=== PATIENT | female | born 1945 | race Caucasian/White ===

== ENCOUNTER 2017-09-30 08:47 | Day surgery (SDC) | payer OTHER ==
[~2017-09-30] VITALS: Ht 172.7 cm; Wt 65.4 kg
[~2017-09-30 08:47] MED LIST: ALBU90OI61 INH; CHOL10002 PO; Desyrel50 MG PO; EPIN.3I IM; FLUSAL2505 INH; HYDCOR10; LEVSOD100 PO; Prilosec Otc20 MG PO; Ventolin Soln3 ML INH
[2017-09-30] MEDS ORDERED: NASACORT10.8 ML (09:09)
== END 2017-09-30 13:09 | disposition home or self-care (01) ==
LOC: ORSCSDS 08:47
PROVIDERS: Orthopaedic Surgery
PROC: 0JBJ0ZX Excision of Right Hand Subcutaneous Tissue and Fascia, Open Approach, Diagnostic (ICD-10-PCS; principal; 2017-09-30 10:00)
DX: R22.31 Localized swelling, mass and lump, right upper limb (principal); L72.0 Epidermal cyst; E03.9 Hypothyroidism, unspecified; M35.3 Polymyalgia rheumatica; J45.909 Unspecified asthma, uncomplicated; Z79.899 Other long term (current) drug therapy
CPT/HCPCS: 88304; J0171; J0690; J1100; J1885; J2250; J2405; J3010; J7120

== ENCOUNTER 2018-02-19 09:57 | Emergency (ER) | payer OTHER ==
[~2018-02-19] VITALS: Ht 172.7 cm; Wt 63.5 kg
[~2018-02-19 09:57] MED LIST changes: +NASACORT10.8 ML
[2018-02-19 10:32] LABS: BASOPHILS ABSOLUTE AUTO 0.04 K/mm3 (0.00-0.23); BASOPHILS PERCENT AUTO 1 % (0-2); EOSINOPHILS ABSOLUTE AUTO 0.07 K/mm3 (0.00-0.68); EOSINOPHILS PERCENT AUTO 1 % (0-6); Hemoglobin 12.9 g/dL (11.5-16.0); IMMATURE GRAN ABSOLUTE AUTO 0.01 K/mm3 (0.00-0.10); IMMATURE GRAN PERCENT AUTO 0 % (0-1); LYMPHOCYTES ABSOLUTE AUTO 1.47 K/mm3 (0.84-5.20); LYMPHOCYTES PERCENT AUTO 26 % (21-46); MONOCYTES ABSOLUTE AUTO 0.64 K/mm3 (0.16-1.47); MONOCYTES PERCENT AUTO 11 % (4-13); Mean Corpuscular HGB 31.1 pg (26.0-34.0); Mean Corpuscular HGB Conc 33.9 g/dL (31.5-36.5); Mean Corpuscular Volume 92 fL (80-100); Mean Platelet Volume 10.4 fL (9.1-12.4); NEUTROPHILS ABSOLUTE AUTO 3.43 K/mm3 (1.96-9.15); NEUTROPHILS PERCENT AUTO 61 % (41-73); Platelet Count 198 K/mm3 (150-400); RDW Coefficient Variation 13.1 % (11.7-14.2); RDW Standard Deviation 43.8 fL (35.1-46.3); Red Blood Cell Count 4.15 M/mm3 (3.80-5.20); White Blood Cell Count 5.66 K/mm3 (4.00-11.30)
[2018-02-19 10:49] LABS: Alanine Aminotransfer (ALT/SGP 27 U/L (12-78); Albumin, Blood 3.8 g/dL (3.4-5.0); Albumin/Globulin Ratio 1.1 (0.8-1.8); Alk Phos 68 U/L (50-136); Anion Gap 11 mmol/L (6-16); Aspartate Aminotrans (AST/SGOT 40 U/L (12-37); Bilirubin, Total 0.8 mg/dL (0.1-1.0); Blood Urea Nitrogen 10 mg/dL (8-24); Bun/Creatinine Ratio 14.8 (12.0-20.0); CO2, Blood 24 mmol/L (21-32); Calcium, Blood 8.8 mg/dL (8.5-10.1); Chloride, Blood 109 mmol/L (98-108); Creatinine, Blood 0.68 mg/dL (0.40-1.00); Globulin, Blood 3.5 g/dL (2.2-4.0); Glomerular Filtration Rate >60 (60-); Glucose, Blood 101 mg/dL (70-99); Magnesium, Blood 2.1 mg/dL (1.6-2.4); Potassium, Blood 4.1 mmol/L (3.5-5.5); Sodium, Blood 144 mmol/L (136-145); Total Protein, Blood 7.3 g/dL (6.4-8.2)
[2018-02-19 10:55] LABS: Thyroid Stimulating Hormone 0.346 uIU/mL (0.360-4.800); Triiodothyronine, Free 3.18 pg/mL (2.18-3.98)
[2018-02-19] MEDS ORDERED: Xanax0.5 MG PO (12:01)
== END 2018-02-19 12:22 | disposition home or self-care (01) ==
LOC: ER 09:57
PROVIDERS: Emergency Medicine
DX: R06.00 Dyspnea, unspecified (principal); F41.9 Anxiety disorder, unspecified; J45.909 Unspecified asthma, uncomplicated; Z88.4 Allergy status to anesthetic agent; Z88.5 Allergy status to narcotic agent; Z79.899 Other long term (current) drug therapy
CPT/HCPCS: 36415; 71046; 80053; 83735; 84443; 84481; 85025; 93005; 93010; 96361; 96374; 99285-25; J2405; J7030

== ENCOUNTER 2018-09-15 00:10 | Day surgery (SDC) | payer OTHER ==
[~2018-09-15 00:10] MED LIST changes: +Xanax0.5 MG PO
[2018-09-15] MEDS ORDERED: LEVSOD88 PO (09:30)
[2018-09-15] MEDS ORDERED: Hair, Skin & N1 EACH PO (09:31)
[2018-09-15] MEDS ORDERED: VITAMIN B122500 MC1 PO (09:32)
[2018-09-15] MEDS ORDERED: PRESERVISION L1 EACH PO (09:32)
== END 2018-09-15 09:41 | disposition home or self-care (01) ==
LOC: ATC 00:10
DX: E27.40 Unspecified adrenocortical insufficiency (principal); J45.909 Unspecified asthma, uncomplicated; M81.0 Age-related osteoporosis without current pathological fracture; G47.30 Sleep apnea, unspecified; F32.9 Major depressive disorder, single episode, unspecified; E03.9 Hypothyroidism, unspecified; M19.90 Unspecified osteoarthritis, unspecified site; Z88.4 Allergy status to anesthetic agent; Z88.5 Allergy status to narcotic agent
CPT/HCPCS: 36415; 80400; 82533; 96372; J0834

== ENCOUNTER → 2020-04-26 | Outpatient (CLI) | payer OTHER ==
[~2020-04-26] MED LIST changes: +Hair, Skin & N1 EACH PO; +LEVSOD88 PO; +PRESERVISION L1 EACH PO; +VITAMIN B122500 MC1 PO
== END | disposition home or self-care (01) ==
LOC: LAB EV 14:48 → LAB SHORT 14:48
DX: R05 Cough (principal); Z20.828 Contact with and (suspected) exposure to other viral communicable diseases
CPT/HCPCS: U0003

== ENCOUNTER 2021-08-02 06:18 | Day surgery (SDC) | payer OTHER ==
[~2021-08-02] VITALS: Ht 172.7 cm; Wt 62.7 kg
[~2021-08-02 06:18] MED LIST changes: -FLUSAL2505 INH; +FLUT1DIS5 INH
[2021-08-02] MEDS ORDERED: ALLEGRA ALLERG180 MG PO (07:14)
[2021-08-02] MEDS ORDERED: EUTHYROX88 MCG PO ×2 (07:15→07:16)
[2021-08-02] MEDS ORDERED: FLUT.05NI (07:15)
[2021-08-02] MEDS ORDERED: PSEU120ER PO (07:17)
[2021-08-02] MEDS ORDERED: Ketoconazole120 ML TOP (07:18)
[2021-08-02] MEDS ORDERED: B-COMPLEX WITH1 EAC2 PO (07:20)
--- NOTE | 2021-08-02 10:53 | NUR ---
DR MAR IN ROOM TO SEE PT.
--- NOTE | 2021-08-02 11:11 | NUR ---
AT APPROX 1045 PT ARRIVED BACK TO RECOVERY ROOM IN RECLINER. LEFT RADIAL TR BAND SITE WITH WRIST BOARD IN PLACE SOFT WITH NO HEMATOMA, NO PULSATILE BLEEDING. SP02 PROBE IS ON LEFT THUMB. PT DENIES CHEST PAIN. CALL LIGHT IN REACH.
--- NOTE | 2021-08-02 12:40 | NUR ---
11 CC OF AIR REMOVED OVER 10 MIN OUT OF NOW DEFLATED LEFT TR BAND; LEFT RADIAL SITE SOFT WITH NO HEMATOMA AND NO PULSATILE BLEEDING. DISCHARGE INSTRUCTIONS REVIEWED AND ALL QUESTIONS ANSWERED.
--- NOTE | 2021-08-02 13:00 | NUR ---
NO CHANGES TO DEFLATED LEFT TR BAND SITE; SOFT WITH NO HEMATOMA, NO PULSATILE BLEEDING AND WRIST BOARD IN PLACE.
--- NOTE | 2021-08-02 13:44 | NUR ---
DEFLATGED LEFT TR BAND REMOVED AND POLYMEM PLACED OVER LEFT RADIAL SITE WITH WRIST BOARD IN PLACE. 20 G IV DISCONTINUED FROM RIGHT AC WITH INTACT CANNULA. NO CHANGES TO LEFT RADIAL SITE.
--- NOTE | 2021-08-02 13:55 | NUR ---
PT ESCORTED OUT VIA WHEELCHAIR ESCORT.
== END 2021-08-02 13:50 | disposition home or self-care (01) ==
LOC: MHTC 06:18
DX: I72.2 Aneurysm of renal artery (principal); J45.909 Unspecified asthma, uncomplicated; Z87.891 Personal history of nicotine dependence; Z91.048 Other nonmedicinal substance allergy status
CPT/HCPCS: 76937; 99152; 99153; A9270; C1769; C1887; C1889; C1894; J1200; J1644; J2250; J2405; J7030; J7050; Q9967

== ENCOUNTER → 2021-10-15 | Outpatient (CLI) | payer OTHER ==
[~2021-10-15] MED LIST changes: +ALLEGRA ALLERG180 MG PO; +B-COMPLEX WITH1 EAC2 PO; +EUTHYROX88 MCG PO; +FLUT.05NI; +Ketoconazole120 ML TOP; +PSEU120ER PO
[2021-10-16 09:40] LABS: Stool Occult Bld Immuno 1 Negative (NEGATIVE)
== END | disposition home or self-care (01) ==
LOC: LAB SHORT 14:50 → LAB 14:50
PROVIDERS: Internal Medicine
DX: Z12.11 Encounter for screening for malignant neoplasm of colon (principal)
CPT/HCPCS: 82274

== ENCOUNTER → 2023-11-03 | Outpatient (CLI) | payer OTHER ==
[~2023-11-03] MED LIST changes: +AZIT250 PO; +PRED20 PO
== END | disposition home or self-care (01) ==
LOC: LAB SHORT 10:05 → LAB 10:05
DX: R05.1 Acute cough (principal)
CPT/HCPCS: 87807

== ENCOUNTER 2023-12-24 14:29 | Inpatient (IN) | payer OTHER ==
[~2023-12-24] VITALS: Ht 175.3 cm; Wt 54.5 kg
[2023-12-24 15:14] LABS: BASOPHILS ABSOLUTE AUTO 0.04 K/mm3 (0.00-0.23); BASOPHILS PERCENT AUTO 0 % (0-2); EOSINOPHILS PERCENT AUTO 0 % (0-6); Hematocrit 34.8 % (33.0-51.0); Hemoglobin 11.7 g/dL (11.5-16.0); IMMATURE GRAN ABSOLUTE AUTO 0.12 K/mm3 (0.00-0.10); IMMATURE GRAN PERCENT AUTO 1 % (0-1); LYMPHOCYTES ABSOLUTE AUTO 0.93 K/mm3 (0.84-5.20); LYMPHOCYTES PERCENT AUTO 5 % (21-46); MONOCYTES ABSOLUTE AUTO 0.97 K/mm3 (0.16-1.47); MONOCYTES PERCENT AUTO 5 % (4-13); Mean Corpuscular HGB 29.2 pg (26.0-34.0); Mean Corpuscular HGB Conc 33.6 g/dL (31.5-36.5); Mean Corpuscular Volume 87 fL (80-100); Mean Platelet Volume 8.9 fL (9.1-12.4); NEUTROPHILS ABSOLUTE AUTO 15.81 K/mm3 (1.96-9.15); NEUTROPHILS PERCENT AUTO 89 % (41-73); Platelet Count 463 K/mm3 (150-400); RDW Coefficient Variation 14.2 % (11.7-14.2); RDW Standard Deviation 45.4 fL (35.1-46.3); Red Blood Cell Count 4.01 M/mm3 (3.80-5.20); White Blood Cell Count 17.87 K/mm3 (4.00-11.30)
[2023-12-24 15:33] LABS: Albumin, Blood 2.6 g/dL (3.4-5.0); Albumin/Globulin Ratio 0.5 (0.8-1.8); Bilirubin, Total 0.7 mg/dL (0.1-1.0); Bun/Creatinine Ratio 15.4 (12.0-20.0); Creatinine, Blood 0.85 mg/dL (0.40-1.00); Globulin, Blood 5.3 g/dL (2.2-4.0); Potassium, Blood 4.2 mmol/L (3.5-5.5); Total Protein, Blood 7.9 g/dL (6.4-8.2)
[2023-12-24 15:38] LABS: Influenza A, PCR NEGATIVE (NEGATIVE); Influenza B, PCR NEGATIVE (NEGATIVE); Resp Syncytial Virus, PCR NEGATIVE (NEGATIVE); SARS-Cov-2 (COVID-19) PCR, MMC NEGATIVE (NEGATIVE)
[2023-12-24] MEDS ORDERED: Ipratropium/Albuterol SulF 2.5-0.5MG/3 ML Amp INH ONE (15:55)
[2023-12-24 16:33] LABS: Source, Urine Clean Catch
[2023-12-24 17:09] LABS: Appearance, Urine Clear (Clear); Bilirubin, Urine Neg (Neg); Blood, Urine 2+ (Neg); Color, Urine Yellow (P-Yellow); Glucose Qualitative, Urine Neg (Neg); Ketones, Urine 2+ (Neg); Leukocyte Esterase, Urine 1+ (Neg); Nitrite, Urine Neg (Neg); Protein, Urine 2+ (Neg); Urobilinogen, Urine NORM (Normal)
[2023-12-24 17:23] LABS: Mucus Mod (0-Heavy)
[2023-12-24 17:25] LABS: Amorphous Light (0-Heavy)
[2023-12-24] MEDS ORDERED: Albuterol 2.5 MG/3 ML VIAL INH PRN (17:25)
[2023-12-24] MEDS ORDERED: NS 1,000 ML IV SCH (17:25)
[2023-12-24 17:26] LABS: Bacteria Few /hpf; Squamous Epithelial Cells Rare /hpf (Few)
[2023-12-24] MEDS ORDERED: Ondansetron HCl 2 MG / ML 2ML Vial IV PRN (17:30)
[2023-12-24] MEDS ORDERED: GuaiFENesin 600 MG TabCR PO SCH (18:00)
[2023-12-24] MEDS ORDERED: NS 500 ML IV ONE (18:00)
[2023-12-24] MEDS ORDERED: Mometasone/Formoterol MDI 200/5 mcg 13 GM INH SCH (18:30)
[2023-12-24] MEDS ORDERED: Azithromycin 500 MG in NS 250 ML IV SCH (19:00)
[2023-12-24] MEDS ORDERED: CefTRIAXone Sodium 1,000 MG in NS 100 ML IV SCH (19:00)
[2023-12-24 19:51] LABS: Human Rhinovirus/Enterovirus Detected (NOT DETECT)
[2023-12-24 19:52] LABS: Bordetella pertussis Not Detected (NOT DETECT); Chlamydophila pneumoniae Not Detected (NOT DETECT); Coronavirus 229E Not Detected (NOT DETECT); Coronavirus HKU1 Not Detected (NOT DETECT); Coronavirus NL63 Not Detected (NOT DETECT); Human Metapneumovirus Not Detected (NOT DETECT); Influenza A/2009-H1 Not Detected (NOT DETECT); Influenza A/H1 Not Detected (NOT DETECT); Influenza A/H3 Not Detected (NOT DETECT); Influenza B Not Detected (NOT DETECT); Mycoplasma pneumoniae Not Detected (NOT DETECT); Parainfluenza Virus 1 Not Detected (NOT DETECT); Parainfluenza Virus 2 Not Detected (NOT DETECT); Parainfluenza Virus 3 Not Detected (NOT DETECT); Parainfluenza Virus 4 Not Detected (NOT DETECT); Respiratory Syncytial Virus Not Detected (NOT DETECT); SARS-Cov-2 (COVID-19), BioFire Not Detected (NOT DETECT)
[2023-12-24 20:42] VITALS: BP 111/92
[2023-12-24] MEDS ORDERED: Acetaminophen 325 MG TABLET PO PRN (23:00)
[2023-12-24] MEDS ORDERED: Ibuprofen 600 MG Tab PO PRN (23:00)
[2023-12-24] MEDS ORDERED: GuaiFENesin 600 MG TabCR PO ONE (23:30)
--- NOTE | 2023-12-25 01:23 | NUR ---
THIS NURSE RECEIVED A PHONE REPORT FROM ER NURSE SHAVON AT 2014. PT.ARRIVED TO THE MED FLOOR/ROOM 335 AT 2030 DURING THIS SHIFT. PT. TRANSPORTED VIA GURNEY FROM ER. PT.'S DAUGHTER JULIÁN BY THE BEDSIDE. MED GONZALES COMPLETED INITIAL ASSESSMENT AND MEDICATION RECONCILIATION. SKIN CHECK COMPLETED WITH MED GONZALES AND THIS NURSE. NS IV FLUID ADMINISTERED ORDERD. AFEBRILE. VSS. RT ADMIN NEB TX BY THE BEDSIDE. 02@2L VIA WI. PT.CONTINUING TO COUGH (NON PRODUCTIVE) DURING HS HRS. PT.C/O BACKPAIN D/T CONT.COUGHING, REQUESTING TYLENON AND IBUPROFEIN (HELPFUL AT HOME PER PT.REPORT.) THIS KEY BED INSTALLER CALLED NIK MAHER- NEW TELEPHONE ORDERS: -TYLENOL 650MG PO Q6 PRN -IBUPROFEN 400-600MG PO Q6 PRN, AND -MUCINEX 600 PO ONCE. PT. WAS GIVEN TYLENOL AND MUCINEX, VERY EFFECTIVE- PT.STOPPED COUGHING FOR THE REST OF THIS NOC SHIFT. PT.AMBULATES WITH FWW AND STANDBY ASSISTANCE TO THE RESTROOM. NO ACUTE EVENTS/DISTRESS NOTED/REPORTED DURING THIS SHIFT. PT. WAS EDUCATED CARDIAC/VASCULAR SONOGRAPHER LIGHT, BED AT THE LOWEST POSITION, CALL LIGHT IN REACH. WILL HANDOFF TO THE INCOMING SHIFT NURSE.
[2023-12-25 03:58] VITALS: BP 112/63
--- NOTE | 2023-12-25 05:00 | NUR ---
SHIFT SUMMARY PLEASE SEE PREVIOUS NOTE. NO ACUTE EVENTS/DISTRESS DURING THIS SHIFT. PT. CONTINUES TO COUGH WHILE AWKE. BEDSIDE COMMODE AND PULLUPS GIVEN TO THE PT. PT. IS PHYSICALLY WEAK, 1-PERSON ASSIST. PT. REPORTS WORRIED ABOUT IV FLUIDS"SO MUCH FLUIDS, HAVE TO GO TO BATHROOM ALL THE TIME." PT IS PLEASANT, COOP WITH CARE, ABLE TO MAKE HER NEEDS KNOWN. BED AT LOWEST POSITION, CALL LIGHT IN REACH. WILL HAND OFF TO THE INCOMING SHIFT NURSE.
[2023-12-25 05:09] LABS: BASOPHILS ABSOLUTE AUTO 0.04 K/mm3 (0.00-0.23); BASOPHILS PERCENT AUTO 0 % (0-2); EOSINOPHILS ABSOLUTE AUTO 0.03 K/mm3 (0.00-0.68); EOSINOPHILS PERCENT AUTO 0 % (0-6); Hematocrit 28.7 % (33.0-51.0); Hemoglobin 9.5 g/dL (11.5-16.0); IMMATURE GRAN ABSOLUTE AUTO 0.09 K/mm3 (0.00-0.10); IMMATURE GRAN PERCENT AUTO 1 % (0-1); LYMPHOCYTES ABSOLUTE AUTO 1.58 K/mm3 (0.84-5.20); LYMPHOCYTES PERCENT AUTO 12 % (21-46); MONOCYTES ABSOLUTE AUTO 0.99 K/mm3 (0.16-1.47); MONOCYTES PERCENT AUTO 7 % (4-13); Mean Corpuscular HGB 29.1 pg (26.0-34.0); Mean Corpuscular HGB Conc 33.1 g/dL (31.5-36.5); Mean Corpuscular Volume 88 fL (80-100); Mean Platelet Volume 8.8 fL (9.1-12.4); NEUTROPHILS ABSOLUTE AUTO 10.61 K/mm3 (1.96-9.15); NEUTROPHILS PERCENT AUTO 80 % (41-73); Platelet Count 373 K/mm3 (150-400); RDW Coefficient Variation 14.5 % (11.7-14.2); RDW Standard Deviation 46.9 fL (35.1-46.3); Red Blood Cell Count 3.27 M/mm3 (3.80-5.20); White Blood Cell Count 13.34 K/mm3 (4.00-11.30)
[2023-12-25 05:45] LABS: Bun/Creatinine Ratio 20.7 (12.0-20.0); Calcium, Blood 7.8 mg/dL (8.5-10.1); Creatinine, Blood 0.68 mg/dL (0.40-1.00); Potassium, Blood 3.6 mmol/L (3.5-5.5)
[2023-12-25] MEDS ORDERED: Levothyroxine Sodium 0.088 MG Tab PO SCH (06:00)
[2023-12-25 06:22] LABS: Adenovirus Not Detected (NOT DETECT)
[2023-12-25 06:23] LABS: Coronavirus OC43 Not Detected (NOT DETECT)
--- NOTE | 2023-12-25 06:24 | NUR ---
@0209 THIS CRUDE TESTER RECEIVED A PHONE CALL FROM IN[facility] NOTIFYING THAT PT'S LAB/RESPIRATORY PANEL CAME BACK THIS MORNING: - POSITIVE FOR RHINOVIRUS- DROPLET PRECAUTIONS IN PLACE.
[2023-12-25 07:44] VITALS: BP 112/64
[2023-12-25] MEDS ORDERED: Enoxaparin 40 MG/0.4 ML SYR SC SCH (09:00)
[2023-12-25] MEDS ORDERED: MethylPREDNISolone Sod Succ 125 MG Vial IV SCH (10:30)
[2023-12-25 14:47] VITALS: BP 117/57
[2023-12-25 15:42] LABS: Acinetobacter baumannii DNA Not Detected copy/mL (NOT DETECT); CTX-M Resistance Gene Not Detected; Enterobacter cloacae DNA Not Detected copy/mL (NOT DETECT); Escherichia coli DNA Not Detected copy/mL (NOT DETECT); Haemophilus influenzae DNA Detected Bin >=10^7 copy/mL (NOT DETECT); Klebsiella aerogenes DNA Not Detected copy/mL (NOT DETECT); Klebsiella oxytoca DNA Detected Bin 10^4 copy/mL (NOT DETECT); Klebsiella pneumoniae DNA Not Detected copy/mL (NOT DETECT); Moraxella catarrhalis DNA Not Detected copy/mL (NOT DETECT); Proteus sp DNA Not Detected copy/mL (NOT DETECT); Pseudomonas aeruginosa DNA Not Detected copy/mL (NOT DETECT); Serratia marcescens DNA Not Detected copy/mL (NOT DETECT); Staphylococcus aureus DNA Not Detected copy/mL (NOT DETECT); Streptococcus agalactiae DNA Not Detected copy/mL (NOT DETECT); Streptococcus pneumoniae DNA Not Detected copy/mL (NOT DETECT); Streptococcus pyogenes DNA Not Detected copy/mL (NOT DETECT)
[2023-12-25 15:43] LABS: Adenovirus DNA Not Detected (NOT DETECT); Chlamydia pneumonia Not Detected (NOT DETECT); Human Coronavirus RNA Not Detected (NOT DETECT); Human Metapneumovirus RNA Not Detected (NOT DETECT); IMP Resistance Gene Not Detected; Influenza virus A RNA Not Detected (NOT DETECT); Influenza virus B RNA Not Detected (NOT DETECT); KPC Resistance Gene Not Detected; Legionella pneumophila Not Detected (NOT DETECT); Mycoplasma pneumoniae Not Detected (NOT DETECT); NDM Resistance Gene Not Detected; OXA-48-like Resistance Gene Not Detected; Parainfluenza virus RNA Not Detected (NOT DETECT); Respiratory syncytial Vir RNA Not Detected (NOT DETECT); Rhinovirus+Enterovirus RNA Detected (NOT DETECT); VIM Resistance Gene Not Detected
--- NOTE | 2023-12-25 18:43 | NUR ---
SHIFT SUMMARY PATIENT WITH DECREASE IN COUGHING FITS AFTER SOLUMEDROL STARTED TODAY. SHE IS UP TO BATHROOM SBA, STATES SHE WAS ABLE TO GET UP ON HER OWN ONCE BUT HAS SO MANY LINES, LINK TRAINER OPERATOR RECCOMENDED TO PATIENT TO STILL CALL TO GET UP. SHE V/U. NO ACUTE EVENTS DURING SHIFT. SHE IS ABLE TO MAKE HER NEEDS KNOWN.
[2023-12-25 19:10] VITALS: BP 110/66
[2023-12-25] MEDS ORDERED: Lactobacil 2-S.Thermo-Bifido 1 1 Cap PO SCH (21:00)
--- NOTE | 2023-12-26 04:04 | NUR ---
SHIFT SUMMARY MAHNAZ WAS ALERT AND FULLY ORIENTED ON ASSESSMENT AND WITH FAMILY. PT SATTING 90'S ON 1L O2, CONTINUING TO COUGH. PT PLEASANT/ COOPERATIVE. EGG CRATE APPLIED TO BED D/T C/O DISCOMFORT. PT RECIEVED SHOWER TONIGHT. NO NEW COMPLAINTS, NO ACUTE EVENTS. PT RESTING IN BED AT A LOW POSITION WITH CALL LIGHT IN REACH.
[2023-12-26 05:12] VITALS: BP 123/63
[2023-12-26 05:33] LABS: BASOPHILS ABSOLUTE AUTO 0.01 K/mm3 (0.00-0.23); BASOPHILS PERCENT AUTO 0 % (0-2); EOSINOPHILS PERCENT AUTO 0 % (0-6); Hematocrit 29.6 % (33.0-51.0); Hemoglobin 9.6 g/dL (11.5-16.0); IMMATURE GRAN ABSOLUTE AUTO 0.06 K/mm3 (0.00-0.10); IMMATURE GRAN PERCENT AUTO 1 % (0-1); LYMPHOCYTES ABSOLUTE AUTO 0.65 K/mm3 (0.84-5.20); LYMPHOCYTES PERCENT AUTO 7 % (21-46); MONOCYTES ABSOLUTE AUTO 0.08 K/mm3 (0.16-1.47); MONOCYTES PERCENT AUTO 1 % (4-13); Mean Corpuscular HGB 28.7 pg (26.0-34.0); Mean Corpuscular HGB Conc 32.4 g/dL (31.5-36.5); Mean Corpuscular Volume 88 fL (80-100); Mean Platelet Volume 8.9 fL (9.1-12.4); NEUTROPHILS ABSOLUTE AUTO 8.07 K/mm3 (1.96-9.15); NEUTROPHILS PERCENT AUTO 91 % (41-73); Platelet Count 409 K/mm3 (150-400); RDW Coefficient Variation 14.2 % (11.7-14.2); Red Blood Cell Count 3.35 M/mm3 (3.80-5.20); White Blood Cell Count 8.87 K/mm3 (4.00-11.30)
[2023-12-26 06:39] LABS: Bun/Creatinine Ratio 23.5 (12.0-20.0); Calcium, Blood 8.1 mg/dL (8.5-10.1); Creatinine, Blood 0.55 mg/dL (0.40-1.00); Percent Saturation 24.2 % (15.0-50.0); Potassium, Blood 3.9 mmol/L (3.5-5.5)
[2023-12-26 07:32] VITALS: BP 96/67
[2023-12-26 15:30] VITALS: BP 119/79
--- NOTE | 2023-12-26 15:51 | NUR ---
SHIFT SUMMARY; PATIENT HAS PLEASANT AFFECT AND IS COOPERATIVE WITH CARE. SHE IS RECEIVING FLUIDS AT 100ML/HR NS. OXYGEN AT 1 LITER VIA NASAL CANNULA. PATIENT ABLE TO AMBULATE TO AND FROM BATHROOM WITHOUT ASSIST. SHE HAS GOOD APPETITE AND IS ABLE TO MAKE HER NEEDS KNOWN USING CALL LIGHT. HER LUNGS ARE TIGHT WITH CRACKLES NOTED IN THE BASES THAT APPEAR TO CLEAR WITH COUGH. SHE IS ON A REGULAR DIET AND REQUESTS WATER WITH ICE OFTEN FOR HYDRATION. HER VITAL SIGNS ARE STABLE AND SHE IS NOT FEBRILE. WILL CONTINUE TO MONITOR THIS PATIENT CLOSELY.
[2023-12-26 19:37] VITALS: BP 128/55
[2023-12-27 02:51] VITALS: BP 128/71
--- NOTE | 2023-12-27 06:08 | NUR ---
SHIFT SUMMARY MAHNAZ WAS ALERT AND FULLY ORIENTED ON ASSESSMENT. PT STILL COUGHING, PT CONCERNED SHE MAY NOT HAVE 02 THERAPY AVAILABLE AT HOME. NO ACUTE CHANGES TO CONDITION NOTED. PT REFUSED THYROID MED THIS AM. PROBABLE DX HOME TODAY. PT RESTING IN BED AT LOW POSITION WITH CALL LIGHT IN REACH.
[2023-12-27 07:27] VITALS: BP 139/70
[2023-12-27] MEDS ORDERED: Ventolin5 MG/1 ML INH (11:33)
[2023-12-27] MEDS ORDERED: Masophen325 MG PO (11:36)
[2023-12-27] MEDS ORDERED: VISBIOME 112.51 EACH PO (11:37)
[2023-12-27] MEDS ORDERED: AMOCLA875 PO (11:37)
[2023-12-27] MEDS ORDERED: GUAI600T33 PO (11:38)
[2023-12-27] MEDS ORDERED: DELTASONE20 MG PO (11:40)
--- NOTE | 2023-12-27 14:50 | NUR ---
A&Ox4. PLEASANT AND COOPERATIVE WITH CARE. CALLS APPROPRIATELY AND IS ABLE TO ADVOCATE NEEDS EFFECTIVELY. AMBULATES INDEPENDENTLY WITHIN ROOM TO BATHROOM. TAKES MEDS WHOLE WITH WATER. DISCHARGE ORDERS RECEIVED; MEDS TO OIL FRAZIER. INSTRUCTIONS TO F/U WITH PCP 2-3 DAYS AND PULMO 1-2 WEEKS. PATIENT ESCORTED FROM FLOOR BY DAUGHTER WITH ALL BELONGINGS AND DISCHARGE PACKET. POV TRANSPORTATION PROVIDED BY DAUGHTERNICOLE.
== END 2023-12-27 14:00 | disposition home or self-care (01) | DRG 177 ==
LOC: ER 14:29 → MEDS 17:22 → ERHOLD 17:22 → MEDS 20:31 → ENPENDDIS 12-27 11:22 → MEDS 12-27 14:00
PROVIDERS: Internal Medicine; Nurse Practitioner Acute Care; Physician Assistant; Student in an Organized Health Care Education/Training Program; ADMIT Internal Medicine
DX: J15.0 Pneumonia due to Klebsiella pneumoniae (principal); J96.01 Acute respiratory failure with hypoxia; J45.901 Unspecified asthma with (acute) exacerbation; E87.1 Hypo-osmolality and hyponatremia; J12.89 Other viral pneumonia; J18.9 Pneumonia, unspecified organism; D64.9 Anemia, unspecified; E03.9 Hypothyroidism, unspecified; B97.89 Other viral agents as the cause of diseases classified elsewhere; B97.19 Other enterovirus as the cause of diseases classified elsewhere; Z88.6 Allergy status to analgesic agent; Z88.5 Allergy status to narcotic agent; Z79.899 Other long term (current) drug therapy; Z79.51 Long term (current) use of inhaled steroids; Z79.52 Long term (current) use of systemic steroids
CPT/HCPCS: 0202U; 0241U; 36415; 71046; 80048; 80053; 81001; 82607; 82728; 82746; 83540; 83550; 84145; 84295; 85025; 87040; 87086; 87449; 87633; 93005; 93010; 94640; 94664; 94760; 94761; 94762; 99284-25; A9270; J0456; J0696; J1650; J2919; J7030; J7040; J7050

== ENCOUNTER 2023-12-29 18:00 | Emergency (ER) | payer OTHER ==
[~2023-12-29] VITALS: Ht 172.7 cm; Wt 61.2 kg
[~2023-12-29 18:00] MED LIST changes: +AMOCLA875 PO; +DELTASONE20 MG PO; +GUAI600T33 PO; +Masophen325 MG PO; +VISBIOME 112.51 EACH PO; +Ventolin5 MG/1 ML INH
[2023-12-29 18:23] VITALS: BP 103/87
== END 2023-12-29 20:18 | disposition home or self-care (01) ==
LOC: ER 18:00
DX: R22.43 Localized swelling, mass and lump, lower limb, bilateral (principal); J45.909 Unspecified asthma, uncomplicated; E03.9 Hypothyroidism, unspecified; Z88.4 Allergy status to anesthetic agent; Z88.5 Allergy status to narcotic agent; Z79.899 Other long term (current) drug therapy; Z79.890 Hormone replacement therapy
CPT/HCPCS: 93970; 99283-25

== ENCOUNTER 2024-08-04 15:15 | Emergency (ER) | payer OTHER ==
[~2024-08-04] VITALS: Ht 172.7 cm; Wt 59.4 kg
[2024-08-04 16:47] LABS: BASOPHILS ABSOLUTE AUTO 0.08 K/mm3 (0.00-0.23); BASOPHILS PERCENT AUTO 1 % (0-2); EOSINOPHILS ABSOLUTE AUTO 0.15 K/mm3 (0.00-0.68); EOSINOPHILS PERCENT AUTO 3 % (0-6); Hemoglobin 12.4 g/dL (11.5-16.0); IMMATURE GRAN ABSOLUTE AUTO 0.01 K/mm3 (0.00-0.10); IMMATURE GRAN PERCENT AUTO 0 % (0-1); LYMPHOCYTES ABSOLUTE AUTO 1.65 K/mm3 (0.84-5.20); LYMPHOCYTES PERCENT AUTO 29 % (21-46); MONOCYTES PERCENT AUTO 9 % (4-13); Mean Corpuscular HGB 30.8 pg (26.0-34.0); Mean Corpuscular HGB Conc 32.6 g/dL (31.5-36.5); Mean Corpuscular Volume 94 fL (80-100); Mean Platelet Volume 10.5 fL (9.1-12.4); NEUTROPHILS ABSOLUTE AUTO 3.26 K/mm3 (1.96-9.15); NEUTROPHILS PERCENT AUTO 58 % (41-73); Platelet Count 165 K/mm3 (150-400); RDW Coefficient Variation 13.3 % (11.7-14.2); RDW Standard Deviation 46.4 fL (35.1-46.3); Red Blood Cell Count 4.03 M/mm3 (3.80-5.20); White Blood Cell Count 5.65 K/mm3 (4.00-11.30)
[2024-08-04 17:14] LABS: Albumin, Blood 3.5 g/dL (3.4-5.0); Albumin/Globulin Ratio 1.1 (0.8-1.8); Bilirubin, Total 0.6 mg/dL (0.1-1.0); Bun/Creatinine Ratio 14.8 (12.0-20.0); C-Reactive Protein, High Sens. 0.691 mg/dL (0.000-3.000); Calcium, Blood 8.9 mg/dL (8.5-10.1); Creatinine, Blood 0.88 mg/dL (0.40-1.00); Globulin, Blood 3.3 g/dL (2.2-4.0); Total Protein, Blood 6.8 g/dL (6.4-8.2)
[2024-08-04] MEDS ORDERED: Tetracaine HCl/Pf 0.5% Opth Soln 4 ml LEFTEYE SCH (22:20)
[2024-08-04] MEDS ORDERED: Fluorescein Sod 1MG Opth Strips LEFTEYE ONE (22:20)
[2024-08-04] MEDS ORDERED: Acetaminophen 500 MG Tab PO ONE (22:20)
[2024-08-04 23:16] LABS: International Normalized Ratio 0.99; Prothrombin Time Results 10.6 Sec (9.7-11.5)
[2024-08-05 01:00] VITALS: BP 173/104
[2024-08-05] MEDS ORDERED: AMLO5 PO (01:08)
== END 2024-08-05 01:08 | disposition home or self-care (01) ==
LOC: ER 15:15
PROVIDERS: Emergency Medicine; Student in an Organized Health Care Education/Training Program
DX: H11.31 Conjunctival hemorrhage, right eye (principal); R51.9 Headache, unspecified; I10 Essential (primary) hypertension; J45.909 Unspecified asthma, uncomplicated; Z79.51 Long term (current) use of inhaled steroids; Z79.52 Long term (current) use of systemic steroids; Z79.899 Other long term (current) drug therapy; Z88.4 Allergy status to anesthetic agent; Z88.5 Allergy status to narcotic agent
CPT/HCPCS: 70450; 70496; 70498; 80053; 85025; 85610; 85651; 85730; 86141; 93005; 93010; 99284-25; A9270; Q9967

== ENCOUNTER → 2025-04-21 | Outpatient (CLI) | payer OTHER ==
[~2025-04-21] MED LIST changes: +AMLO5 PO
== END ==
LOC: LAB 15:33 → LAB SHORT 15:33
DX: N39.0 Urinary tract infection, site not specified (principal)
CPT/HCPCS: 87077; 87086; 87186

== ENCOUNTER → 2025-04-30 | Outpatient (CLI) | payer OTHER | LOC: LAB 14:23 → LAB SHORT 14:23 | DX: N39.0 Urinary tract infection, site not specified (principal) | CPT/HCPCS: 87086 ==

== ENCOUNTER → 2025-05-16 | Outpatient (CLI) | payer OTHER ==
[2025-05-16 13:34] LABS: Source, Urine Clean Catch
[2025-05-16 15:11] LABS: Bilirubin, Urine Neg (Neg); Color, Urine Yellow (P-Yellow); Glucose Qualitative, Urine Neg (Neg); Ketones, Urine Neg (Neg); Leukocyte Esterase, Urine 3+ (Neg); Protein, Urine Neg (Neg); Specific Gravity, Urine 1.005 (1.003-1.022); Urobilinogen, Urine NORM (Normal)
[2025-05-16 15:54] LABS: White Blood Cells, Urine 50-100 /hpf (0-5)
== END | disposition home or self-care (01) ==
LOC: LAB SHORT 13:33 → LAB 13:33
PROVIDERS: Internal Medicine
DX: N39.0 Urinary tract infection, site not specified (principal)
CPT/HCPCS: 81001; 87077; 87086; 87186

== ENCOUNTER → 2025-05-29 | Outpatient (CLI) | payer OTHER ==
[2025-05-29 12:09] LABS: Source, Urine Clean Catch
[2025-05-29 13:38] LABS: Bilirubin, Urine Neg (Neg); Color, Urine Yellow (P-Yellow); Glucose Qualitative, Urine Neg (Neg); Ketones, Urine Neg (Neg); Leukocyte Esterase, Urine 1+ (Neg); Protein, Urine Neg (Neg); Specific Gravity, Urine 1.005 (1.003-1.022); Urobilinogen, Urine NORM (Normal)
[2025-05-29 14:24] LABS: Red Blood Cells, Urine 0-2 /hpf (0-2)
== END ==
LOC: LAB SHORT 12:08 → LAB 12:08
PROVIDERS: Internal Medicine
DX: N39.0 Urinary tract infection, site not specified (principal)
CPT/HCPCS: 81001; 87086

== ENCOUNTER → 2025-06-16 | Outpatient (CLI) | payer OTHER | LOC: LAB 13:48 → LAB SHORT 13:48 | DX: N39.0 Urinary tract infection, site not specified (principal); R31.9 Hematuria, unspecified | CPT/HCPCS: 87077; 87086; 87186 ==